=== PATIENT | male | born 1990 | race Caucasian/White ===

== ENCOUNTER 2019-08-09 20:45 | Emergency (ER) | payer MEDICAID, OTHER ==
[~2019-08-09] VITALS: Ht 167.6 cm; Wt 71.2 kg
[2019-08-09 20:49] VITALS: BP 96/60
[2019-08-09] MEDS ORDERED: LORazepam 1 MG TAB PO ONE (21:20)
[2019-08-09 23:00] VITALS: BP 119/72
== END 2019-08-09 23:00 | disposition home or self-care (01) ==
LOC: MED 20:45
DX: R00.0 Tachycardia, unspecified (principal)
CPT/HCPCS: 93005; 99283

== ENCOUNTER 2019-08-24 16:29 | Emergency (ER) | payer MEDICAID ==
[~2019-08-24] VITALS: Ht 170.2 cm; Wt 72.6 kg
[2019-08-24 16:34] VITALS: BP 133/94
--- NOTE | 2019-08-24 17:06 | NUR ---
PT AMBULATED TO BED 7.
--- NOTE | 2019-08-24 17:10 | NUR ---
29/M c/o posterior neck pain x4 days. Pt denies any injury or trauma. Patient complains of pain to back of neck radiating to his shoulders up to his collar bones 4/10 in severity. Patient denies working, states he has been at home. Pt states he is currently on abx amoxcillin for a throat infection. Denies fever or chills. Denies any recent travel. AOX4. VSS.
--- NOTE | 2019-08-24 17:16 | NUR ---
Patient being evaluated by KERI Reis at bedside.
[2019-08-24 17:34] VITALS: BP 133/94
--- NOTE | 2019-08-24 17:34 | NUR ---
Patient discharged with v/s stable. Written and verbal after care instructions given and explained. Patient verbalized understanding. Ambulatory with steady gait. All questions addressed prior to discharge. Advised to follow up with PMD.
== END 2019-08-24 17:34 | disposition home or self-care (01) ==
LOC: MED 16:29
DX: M54.6 Pain in thoracic spine (principal); M54.2 Cervicalgia
CPT/HCPCS: 99283

== ENCOUNTER 2023-02-26 02:59 | Emergency (ER) | payer MEDICAID, OTHER ==
[~2023-02-26] VITALS: Ht 167.6 cm; Wt 71.2 kg
[2023-02-26 03:10] VITALS: BP 124/79; PULSE 84; RESP 16; TEMP 97.8; O2SAT 100
== END 2023-02-26 06:20 | disposition home or self-care (01) ==
LOC: MED 02:59
DX: S09.90XA Unspecified injury of head, initial encounter (principal); V49.88XA Car occupant (driver) (passenger) injured in other specified transport accidents, initial encounter; Y93.89 Activity, other specified; Y92.89 Other specified places as the place of occurrence of the external cause; Y99.8 Other external cause status
CPT/HCPCS: 70450; 99284